=== PATIENT | male | born 1990 | race African-American/Black ===

== ENCOUNTER 2020-07-29 08:44 | Emergency (ER) | payer SELFPAY ==
[2020-07-29 10:01] LABS: Urine Blood NEGATIVE (NEG); Urine Glucose NEGATIVE (NEG); Urine Protein NEGATIVE (NEG)
[2020-07-29 10:07] LABS: Urine Bacteria NONE SEEN /HPF (NONE SEEN); Urine Mucus LIGHT /HPF (NONE SEEN); Urine RBC <5 /HPF (NONE SEEN)
[2020-07-29] MEDS ORDERED: NA CHLORIDE 0.9% 1,000 ML ONE (10:11)
--- NOTE | 2020-07-29 10:24 | ER ---
Nurse's Notes [facility] Name: Jaime Espinoza Age: 30 yrs Sex: Male : 1990 Arrival Date: 07/29/2020 Time: 08:47 Bed 20 Private MD: Diagnosis: Influenza due to other identified influenza virus Presentation: 07/29 09:03 Chief complaint: Patient states: reports chills, N/V, slight cough and upper left sided em back pain, denies fever, diarrhea, or abd pain. Coronavirus screen: Client denies travel out of the [place] in the last 14 days. Ebola Screen: Patient negative for fever greater than or equal to 101.5 degrees Fahrenheit, and additional compatible Ebola Virus Disease symptoms Patient denies exposure to infectious person. Patient denies travel to an Ebola-affected area in the 21 days before illness onset. No symptoms or risks identified at this time. Initial Sepsis Screen: Does the patient meet any 2 criteria? HR > 90 bpm. No. Patient's initial sepsis screen is negative. Does the patient have a suspected source of infection? No. Patient's initial sepsis screen is negative. Risk Assessment: Do you want to hurt yourself or someone else? Patient reports no desire to harm self or others. Onset of symptoms was July 27, 2020. 09:03 Method Of Arrival: Ambulatory em 09:03 Acuity: ABIGAIL 3 em Historical: - Allergies: 09:06 No Known Allergies; em - PMHx: 09:06 None; em - PSHx: 09:06 None; em - Immunization history:: Adult Immunizations up to date. - Social history:: Smoking status: Patient reports the use of cigarette tobacco products, smokes one-half pack cigarettes per day. - Family history:: not pertinent. - Hospitalizations: : No recent hospitalization is reported. Screenin:00 Abuse screen: Denies threats or abuse. Nutritional screening: No deficits noted. em Tuberculosis screening: No symptoms or risk factors identified. Fall Risk None identified. Assessment: 09:00 General: Appears in no apparent distress. comfortable, Behavior is calm, cooperative, em appropriate for age, Denies fever. Pain: Complains of pain in left subscapular area Pain currently is 2 out of 10 on a pain scale. Neuro: Level of Consciousness is awake, alert, obeys commands, Oriented to person, place, time, situation, Appropriate for age. Cardiovascular: Capillary refill < 3 seconds Patient's skin is warm and dry. Respiratory: Reports cough that is non-productive, Airway is patent Respiratory effort is even, unlabored, Respiratory pattern is regular, symmetrical, Denies shortness of breath. GI: Abdomen is flat, Reports nausea, Patient currently denies diarrhea, vomiting. EENT: Nares are clear Oral mucosa is moist. Denies nasal congestion. Derm: Skin is intact, is healthy with good turgor, Skin is pink, warm \T\ dry. Musculoskeletal: Capillary refill < 3 seconds, Range of motion: intact in all extremities. Vital Signs: 09:03 BP 117 / 89; Pulse 91; Resp 18; Temp 98.2(O); Pulse Ox 100% on R/A; Weight 58.97 kg; em Height 5 ft. 7 in. (170.18 cm); Pain 2/10; 09:03 Body Mass Index 20.36 (58.97 kg, 170.18 cm) em ED Course: 08:47 Patient arrived in ED. rg4 08:57 Angel Browne, RN is Primary Nurse. em 08:59 Miguel Shetty MD is Attending Physician. rn 09:00 Patient has correct armband on for positive identification. Pulse ox on. NIBP on. em 09:06 Triage completed. em 09:06 Arm band placed on. em 09:58 Inserted saline lock: 20 gauge in left antecubital area, using aseptic technique. dh3 10:44 IV discontinued, intact, bleeding controlled, No redness/swelling at site. Pressure em dressing applied. 10:45 No provider procedures requiring assistance completed. em Administered Medications: 10:01 Drug: NS 0.9% 1000 ml Route: IV; Rate: 1000 ml; Site: left antecubital; em 10:46 Follow up: IV Status: Completed infusion; IV Intake: 1000ml em Intake: 10:46 IV: 1000ml; Total: 1000ml. em Outcome: 10:24 Discharge ordered by MD. rn 10:50 Discharged to home ambulatory. em 10:50 Condition: improved 10:50 Discharge instructions given to patient, Instructed on discharge instructions, follow up and referral plans. medication usage, Demonstrated understanding of instructions, follow-up care, medications, Prescriptions given X 2. 10:51 Patient left the ED. em Addendum: 07/31/2020 07:54 Addendum: COVID-19 Result: Negative result given to RN to notify pt. Notified pt of d m5 negative COVID 19 swab results. Pt advised that even with a negative test result they should remain in isolation until symptom free for 3 days without medication. Pt also advised to return to the ED for worsening symptoms. Signatures: Yoko Valencia RN RN 5 Angel Browne RN RN em Nieto, Roman, MD MD rn Garcia, Rubi 4 Annalee Muonz 3 Corrections: (The following items were deleted from the chart) 07/29 10:44 09:00 IV discontinued, intact, bleeding controlled, No redness/swelling at site. em Pressure dressing applied, em
--- NOTE | 2020-07-29 10:25 | EDPHYS ---
Physician Documentation [facility] Name: Jaime Espinoza Age: 30 yrs Sex: Male : 1990 Arrival Date: 07/29/2020 Time: 08:47 Bed 20 Private MD: ED Physician Miguel Shetty HPI: 07/29 09:53 This 30 yrs old Black Male presents to ER via Ambulatory with complaints of Vomiting, rn Headache, Back Pain. 09:53 The patient presents to the emergency department with nausea, vomiting. Onset: The rn symptoms/episode began/occurred yesterday. Possible causes: bad food exposure. The symptoms are aggravated by nothing. The symptoms are alleviated by nothing. Severity of symptoms: At their worst the symptoms were mild in the emergency department the symptoms have improved. The patient has not experienced similar symptoms in the past. 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 Reports mild mid back pain, but no chest or abd pain. Has not thrown up today. No diarrhea. No sore throat/runny nose/congestion/neck pain/loss of taste or smell. . Historical: - Allergies: 09:06 No Known Allergies; em - PMHx: 09:06 None; em - PSHx: 09:06 None; em - Immunization history:: Adult Immunizations up to date. - Social history:: Smoking status: Patient reports the use of cigarette tobacco products, smokes one-half pack cigarettes per day. - Family history:: not pertinent. - Hospitalizations: : No recent hospitalization is reported. ROS: 09:53 Constitutional: Negative for fever, chills, and weight loss, Eyes: Negative for injury, rn pain, redness, and discharge, Neck: Negative for injury, pain, and swelling, Cardiovascular: Negative for chest pain, palpitations, and edema, Respiratory: Negative for shortness of breath, cough, wheezing, and pleuritic chest pain, Abdomen/GI: Negative for abdominal pain, diarrhea, and constipation, Back: Negative for injury : Negative for injury, bleeding, discharge, and swelling, MS/Extremity: Negative for injury and deformity, Skin: Negative for injury, rash, and discoloration, Neuro: Negative for numbness, tingling, and seizure. Exam: 09:53 Constitutional: This is a well developed, well nourished patient who is awake, alert, rn and in no acute distress. Ambulatory to room without difficulty or assistance. Head/Face: Normocephalic, atraumatic. Cardiovascular: Regular rate and rhythm. No pulse deficits. Respiratory: Speaking full sentences. No increased work of breathing, no retractions or nasal flaring. Abdomen/GI: soft, non-tender, neg alba Back: No spinal tenderness. No costovertebral tenderness. Full range of motion. Skin: Warm, dry with normal turgor. Normal color with no rashes, no lesions, and no evidence of cellulitis. MS/ Extremity: Pulses equal, no cyanosis. Neurovascular intact. Full, normal range of motion. Equal circumference. Neuro: Awake and alert, GCS 15, oriented to person, place, time, and situation. Cranial nerves II-XII grossly intact. Motor strength 5/5 in all extremities. Sensory grossly intact. Cerebellar exam normal. Normal gait. Vital Signs: 09:03 BP 117 / 89; Pulse 91; Resp 18; Temp 98.2(O); Pulse Ox 100% on R/A; Weight 58.97 kg; em Height 5 ft. 7 in. (170.18 cm); Pain 2/10; 09:03 Body Mass Index 20.36 (58.97 kg, 170.18 cm) em MDM: 08:59 Patient medically screened. rn 10:23 Differential diagnosis: viral gastroenteritis, gastroenteritis, influenza, COVID. Data rn reviewed: vital signs, nurses notes, lab test result(s), and as a result, I will discharge patient. Counseling: I had a detailed discussion with the patient and/or guardian regarding: the historical points, exam findings, and any diagnostic results supporting the discharge/admit diagnosis, lab results, the need for outpatient follow up, to return to the emergency department if symptoms worsen or persist or if there are any questions or concerns that arise at home. Special discussion: I discussed with the patient/guardian in detail that at this point there is no indication for admission to the hospital. It is understood, however, that if the symptoms persist or worsen the patient needs to return immediately for re-evaluation. 07/29 09:13 Order name: COVID-19 rn 07/29 09:13 Order name: Flu; Complete Time: 10:21 rn 07/29 09:14 Order name: Urine Microscopic Only; Complete Time: 10:21 rn 07/29 09:14 Order name: Urine Dipstick-Ancillary (obtain specimen); Complete Time: 09:59 rn 07/29 09:56 Order name: Urine Dipstick--Ancillary (enter results); Complete Time: 10:21 eb 07/29 09:56 Order name: IV Start; Complete Time: 10:01 rn Administered Medications: 10:01 Drug: NS 0.9% 1000 ml Route: IV; Rate: 1000 ml; Site: left antecubital; em 10:46 Follow up: IV Status: Completed infusion; IV Intake: 1000ml em Disposition: 07/29/20 10:24 Discharged to Home. Impression: Influenza due to other identified influenza virus. - Condition is Stable. - Discharge Instructions: Influenza, Adult. - Prescriptions for Zofran ODT 4 mg Oral tablet,disintegrating - place 1 tablet by TRANSLINGUAL route every 8 hours As needed; 15 tablet. Tamiflu 75 mg Oral Capsule - take 1 capsule by ORAL route every 12 hours for 5 days; 10 capsule. - Medication Reconciliation Form, Thank You Letter, Antibiotic Education, Prescription Opioid Use form. - Follow up: Private Physician; When: As needed; Reason: Recheck today's complaints, Re-evaluation by your physician. - Problem is new. - Symptoms have improved. Signatures: Dispatcher [employer] Angel Enamorado RN RN em Nieto, Roman, MD MD varnish thinner: (The following items were deleted from the chart) 10:51 10:24 07/29/2020 10:24 Discharged to Home. Impression: Influenza due to other em identified influenza virus. Condition is Stable. Forms are Medication Reconciliation Form, Thank You Letter, Antibiotic Education, Prescription Opioid Use. Follow up: Private Physician; When: As needed; Reason: Recheck today's complaints, Re-evaluation by your physician. Problem is new. Symptoms have improved. rn
[2020-07-29 10:55] VITALS: BP 117/89; TEMP 98.2; O2SAT 100
== END 2020-07-29 10:51 | disposition home or self-care (01) ==
LOC: ER 08:44
DX: J10.1 Influenza due to other identified influenza virus with other respiratory manifestations (principal); Z20.828 Contact with and (suspected) exposure to other viral communicable diseases; F17.210 Nicotine dependence, cigarettes, uncomplicated
CPT/HCPCS: 81003; 81015; 87804; 96360; 99284; J7030; U0002

== ENCOUNTER 2022-10-06 16:17 | Emergency (ER) | payer SELFPAY ==
--- OUTSIDE RECORDS SUMMARY | 2022-10-06 16:20 | XMS REPORT | Continuity of Care Document ---
:1990 Author Organization [facility] t Address [address] [place] [address] Care Team Providers Name Role Phone No, Pcp [facility] Primary Care Physician Unavailable jenaro Attending Clinician Unavailable NICO RICHARDS Attending Clinician Unavailable Payers Payer Name Policy Type Policy Number Effective Date Expiration Date S ource Self Pay P [id number] 2022 00:00:00 Problems This patient has no known problems. Allergies, Adverse Reactions, Alerts This patient has no known allergies or adverse reactions. Social History Social Habit Start Date Stop Date Quantity Comments Source Tobacco use and 2017-08-24 2017-08-[address] [facility] exposure 00:00:00 00:00:00 [facility] Alcohol intake 2017-08-24 2017-08-[address] [facility] 00:[facility]00 00:00:00 non-drinker of Medical Ce [facility]ter alcohol (finding) Sex Assigned At [address] [facility] 00:00:00 00:00:00 [facility] Smoking Status Start Date Stop Date Source Current every day smoker 2017-08-24 00:00:00 [facility] Medications This patient has no known medications. Procedures This patient has no known procedures. Encounters Start End Encounter Admission Attending Care Care Encounter Source Date/Time Date/Time Type Type Clinicians Facility Department ID 2022-03-03 Outpatient jenaro [facility] [id number] [facility] 17:59:02 [facility] 2021-12-31 Outpatient jenaro [facility] [id number] [facility] 13:57:06 [facility] Results Test Description Test Time Test Comments Results Result Comments Source CBC W/PLT COUNT & AUTO DIFFERENTIAL 2017-08-24 18:56:00 Test Item Value Reference Range Interpretation Comme nts WHITE BLOOD CELL COUNT (BEAKER) (test code = 775) 5.4 10e3/ L 4.0- 10.0 RED BLOOD CELL COUNT (BEAKER) (test code = 761) 4.88 10e6/ L 4.20-5 .80 HEMOGLOBIN (BEAKER) (test code = 410) 15.9 g/dL 13.0-16.8 HEMATOCRIT (BEAKER) (test code = 411) 46.7 % 40.0-50.0 MEAN CORPUSCULAR VOLUME (BEAKER) (test code = 753) 95.8 fL 82. 0-98.0 MEAN CORPUSCULAR HEMOGLOBIN (BEAKER) (test code = 751) 32.7 pg 27.0-33.0 MEAN CORPUSCULAR HEMOGLOBIN CONC (BEAKER) (test code = 34.1 g/dL 32.0-36.0 752) RED CELL DISTRIBUTION WIDTH (BEAKER) (test code = 412) 12.7 % 10.3-14.2 PLATELET COUNT (BEAKER) (test code = 756) 220 10e3/ L 150-430 MEAN PLATELET VOLUME (BEAKER) (test code = 754) 6.8 fL 6.5-10 .5 NEUTROPHILS RELATIVE PERCENT (BEAKER) (test code = 429) 54 % LYMPHOCYTES RELATIVE PERCENT (BEAKER) (test code = 430) 38 % MONOCYTES RELATIVE PERCENT (BEAKER) (test code = 431) 4 % EOSINOPHILS RELATIVE PERCENT (BEAKER) (test code = 432) 4 % BASOPHILS RELATIVE PERCENT (BEAKER) (test code = 437) 1 % NEUTROPHILS ABSOLUTE COUNT (BEAKER) (test code = 670) 2.91 10e3/ L 1.80-8.00 LYMPHOCYTES ABSOLUTE COUNT (BEAKER) (test code = 414) 2.07 10e3/ L 1.48-4.50 MONOCYTES ABSOLUTE COUNT (BEAKER) (test code = 415) 0.23 10e3/ L 0. 00-1.30 EOSINOPHILS ABSOLUTE COUNT (BEAKER) (test code = 416) 0.19 10e3/ L 0.00-0.50 BASOPHILS ABSOLUTE COUNT (BEAKER) (test code = 417) 0.03 10e3/ L 0. 00-0.20 BASIC METABOLIC [id number] 18:52:00 Test Item Value Reference Range Interpretation Comments SODIUM (BEAKER) 145 meq/L 135-148 (test code = 381) POTASSIUM (BEAKER) 4.1 meq/L 3.6-5.5 (test code = 379) CHLORIDE (BEAKER) 104 meq/L 98-106 (test code = 382) CO2 (BEAKER) (test 26 meq/L 24-32 code = 355) BLOOD UREA NITROGEN 15 mg/dL 10-26 (BEAKER) (test code = 354) CREATININE (BEAKER) 1.20 mg/dL 0.50-1.20 (test code = 358) GLUCOSE RANDOM 93 mg/dL 70-110 (BEAKER) (test code = 652) CALCIUM (BEAKER) 9.3 mg/dL 8.5-10.5 (test code = 697) EGFR (BEAKER) (test 89 mL/min/1.73 ESTIMA TEJA GFR IS code = 1092) sq m NOT ACCURATE CREATININE CLEARANCE IN PREDICTING GLOMERULAR FILTRATION RATE . ESTIMATED GFR I S NOT APPLICABLE FOR DIALYSIS PATIEN TS. HEPATIC FUNCTION [id number] 18:52:00 Test Item Value Reference Range Interpretation Comments TOTAL PROTEIN (BEAKER) (test code = 7.2 gm/dL 6.0-8.5 770) ALBUMIN (BEAKER) (test code = 1145) 3.9 g/dL 3.5-5.0 BILIRUBIN TOTAL (BEAKER) (test code 0.7 mg/dL 0.1-1.2 = 377) BILIRUBIN DIRECT (BEAKER) (test 0.5 mg/dL 0.0-0.4 H code = 706) ALKALINE PHOSPHATASE (BEAKER) (test 93 U/L 30-115 code = 346) AST (SGOT) (BEAKER) (test code = 18 U/L 5-40 353) ALT (SGPT) (BEAKER) (test code = 45 U/L 5-50 347) [id number] 18:52:00 Test Item Value Reference Range Interpretation Comments LIPASE (ROMAN) (test code = 749) 183 U/L 40-240 RAD, CHEST, 2 [id number] 18:30:00Reason for exam:->coughShould this be performed at the bedside?->NoFINAL REPORT Chest, PA and lateral. History: Cough. Comparison: None available.Discussion: The cardiomediastinal silhouette and pulmonary vasculature are within normal limits. Thelungs are clear without evidence of consolidation or effusion. There are no acute osseous abnormalities. The soft tissues are unremarkable. IMPRESSION: No radiographic evidence of acute cardiopulmonaryabnormality. Signed: Lalit Young Verified Date/Time: 08/24/2017 18:30:17 Reading Location: [address] Consult Reading Room
[2022-10-06 17:06] VITALS: BP 120/87; TEMP 98.9; O2SAT 98
--- NOTE | 2022-10-23 14:16 | EDPHYS ---
Physician Documentation [facility] Name: Jaime Espinoza Age: 32 yrs Sex: Male : 1990 Arrival Date: 10/06/2022 Time: 16:20 Bed IW10 Private MD: ED Physician Bola Clancy HPI: 10/06 16:22 This 32 yrs old Black Male presents to ER via Ambulatory with complaints of Lips jmm Swelling, Cough, Chills. 16:22 Onset: The symptoms/episode began/occurred gradually. This is a 32-year-old male that jmm presents emerged part with complaints of upper lip swelling. Denies any injury. Complains of chills and cough as well. Denies vomiting. Denies diarrhea.. Historical: - Allergies: 16:29 No Known Allergies; ld1 - Home Meds: 16:29 None [Active]; ld1 - PMHx: 16:29 None; ld1 - PSHx: 16:29 None; ld1 - Immunization history:: Adult Immunizations up to date, Client reports receiving the 2nd dose of the Covid vaccine. - Social history:: Smoking status: Patient denies any tobacco usage or history of. Patient/guardian denies using alcohol. ROS: 16:22 Constitutional: Negative for fever, chills, and weight loss, Cardiovascular: Negative jmm for chest pain, palpitations, and edema, Respiratory: Negative for shortness of breath, cough, wheezing, and pleuritic chest pain. 16:22 Skin: Positive for swelling. 16:22 All other systems are negative. Exam: 16:22 Constitutional: This is a well developed, well nourished patient who is awake, alert, jmm and in no acute distress. 16:22 ENT: Moist Mucus Membranes Neck: Trachea midline, Supple Chest/axilla: Normal chest wall appearance and motion. Cardiovascular: Regular rate and rhythm. No edema appreciated Respiratory: Normal respirations, no respiratory distress appreciated Abdomen/GI: Non distended Back: Normal ROM 16:22 Head/face: Herpetic lesion noted to the upper lip. 16:22 Skin: Herpetic lesion noted to the upper lip. 16:22 Neuro: Orientation: is normal, Mentation: is normal, Memory: is normal. 16:22 Psych: Behavior/mood is pleasant, cooperative. Vital Signs: 16:28 BP 120 / 87; Pulse 96; Resp 18; Temp 98.9(O); Pulse Ox 98% on R/A; Weight 68.04 kg; ld1 Height 5 ft. 7 in. ; Pain 0/10; 16:28 Body Mass Index 23.49 (68.04 kg, 170.18 cm) ld1 16:28 Pain Scale: Adult ld1 MDM: 16:22 Patient medically screened. [facility] Administered Medications: No medications were administered Disposition: 16:29 Co-signature as Attending Physician, Bola Clancy DO I was immediately available on-site ms3 in the Emergency Department for consultation in the care of the patient. 19:00 Co-signature as Attending Physician, Bola Clancy DO. ms3 Disposition Summary: 10/06/22 16:26 Discharge Ordered Location: Home [facility] Condition: Stable [facility] Diagnosis - Other herpesviral infection [facility] Followup: m - With: Private Physician - When: 2 - 3 days - Reason: Recheck today's complaints, Continuance of care, Re-evaluation by your physician Discharge Instructions: - Discharge Summary Sheet [facility] - Cold Sore [facility] Forms: - Medication Reconciliation Form [facility] - Thank You Letter [facility] - Antibiotic Education [facility] - Prescription Opioid Use [facility] Prescriptions: - Valtrex 1 gram Oral tablet - take 1 tablet by ORAL route 3 times per day for 10 days; 30 tablet; Refills: 0, [facility] Product Selection Permitted Signatures: Alexis James PA PA jmm Sims, Marcus, DO DO ms3 Shreya Andrew, RN RN ld1
--- NOTE | 2022-10-23 14:16 | ER ---
Nurse's Notes [facility] Name: Jaime Espinoza Age: 32 yrs Sex: Male : 1990 Arrival Date: 10/06/2022 Time: 16:20 Bed IW10 Private MD: Diagnosis: Other herpesviral infection Presentation: 10/06 16:28 Chief complaint: Patient states: Sore on lip - started swelling after 3 days. ld1 Coronavirus screen: At this time, the client does not indicate any symptoms associated with coronavirus-19. Ebola Screen: No symptoms or risks identified at this time. Initial Sepsis Screen: Does the patient meet any 2 criteria? No. Patient's initial sepsis screen is negative. Does the patient have a suspected source of infection? No. Patient's initial sepsis screen is negative. Risk Assessment: Do you want to hurt yourself or someone else? Patient reports no desire to harm self or others. Onset of symptoms was October 06, 2022. 16:28 Method Of Arrival: Ambulatory ld1 16:28 Acuity: ABIGAIL 4 ld1 Triage Assessment: 16:29 General: Appears in no apparent distress. comfortable, Behavior is calm, cooperative, ld1 appropriate for age. Pain: Denies pain. EENT: No signs and/or symptoms were reported regarding the EENT system. Neuro: Level of Consciousness is awake, alert, obeys commands, Oriented to person, place, time, situation. Cardiovascular: Capillary refill < 3 seconds Patient's skin is warm and dry. Respiratory: Airway is patent Respiratory effort is even, unlabored. GI: Abdomen is flat, non-distended. : No signs and/or symptoms were reported regarding the genitourinary system. Derm: No signs and/or symptoms reported regarding the dermatologic system. Musculoskeletal: No signs and/or symptoms reported regarding the musculoskeletal system. Historical: - Allergies: 16:29 No Known Allergies; ld1 - Home Meds: 16: None [Active]; ld1 - PMHx: 16:29 None; ld1 - PSHx: 16:29 None; ld1 - Immunization history:: Adult Immunizations up to date, Client reports receiving the 2nd dose of the Covid vaccine. - Social history:: Smoking status: Patient denies any tobacco usage or history of. Patient/guardian denies using alcohol. Vital Signs: 16:28 BP 120 / 87; Pulse 96; Resp 18; Temp 98.9(O); Pulse Ox 98% on R/A; Weight 68.04 kg; ld1 Height 5 ft. 7 in. ; Pain 0/10; 16:28 Body Mass Index 23.49 (68.04 kg, 170.18 cm) ld1 16:28 Pain Scale: Adult ld1 ED Course: 16:20 Patient arrived in ED. mr 16:21 Alexis James PA is PHCP. [facility] 16:21 Bola Clancy DO is Attending Physician. [facility] 16:29 Triage completed. ld1 16:29 Arm band placed on right wrist. ld1 16:39 Lakeisha Wiley, RN is Primary Nurse. iw Administered Medications: No medications were administered Outcome: 16:26 Discharge ordered by . [facility] 16:39 Patient left the ED. iw Signatures: Alexis James PA PA [facility] ShepardCheryle mr Lakeisha Wiley, RN RN iw Shreya Andrew RN RN ld1
== END 2022-10-06 16:39 | disposition home or self-care (01) ==
LOC: ER 16:17
DX: B00.89 Other herpesviral infection (principal)
CPT/HCPCS: 99281

== ENCOUNTER 2022-10-07 05:38 | Emergency (ER) | payer SELFPAY ==
--- OUTSIDE RECORDS SUMMARY | 2022-10-07 05:40 | XMS REPORT | Continuity of Care Document ---
:1990 Author Organization [facility] t Address [address] [place] [address] Care Team Providers Name Role Phone No, Pcp [facility] Primary Care Physician Unavailable jenaro Attending Clinician Unavailable NICO RICHARDS Attending Clinician Unavailable Payers Payer Name Policy Type Policy Number Effective Date Expiration Date S ource Self Pay P [id number] 2022 00:00:00 Problems This patient has no known problems. Allergies, Adverse Reactions, Alerts This patient has no known allergies or adverse reactions. Social History Social Habit Start Date Stop Date Quantity Comments Source Tobacco use and 2017-08-24 2017-08-[address] [facility] exposure 00:00:00 00:00:00 [facility] Alcohol intake 2017-08-24 2017-08-[address] [facility] 00:[facility]:00 00:00:00 non-drinker of Medical Ce nter alcohol (finding) Sex Assigned At [address] [facility] 00:00:00 00:00:00 [facility] Smoking Status Start Date Stop Date Source Current every day smoker 2017-08-24 00:00:00 [facility] Medications This patient has no known medications. Procedures This patient has no known procedures. Encounters Start End Encounter Admission Attending Care Care Encounter Source Date/Time Date/Time Type Type Clinicians Facility Department ID 2022-03-03 Outpatient jenaro [facility] [id number] [facility] 17:59:02 [facility] 2021-12-31 Outpatient jenaro [facility] [id number] [facility] 13:57:06 [facility] Results Test Description Test Time Test Comments [...] 0.03 10e3/ L 0. 00-0.20 BASIC METABOLIC [id number] 18:52:00 Test Item Value Reference Range Interpretation [...] APPLICABLE FOR DIALYSIS PATIEN TS. HEPATIC FUNCTION [id number] 18:52:00 Test Item Value Reference Range Interpretation [...] (test code = 45 U/L 5-50 347) [id number] 18:52:00 Test Item Value Reference Range Interpretation Comments LIPASE (ROMAN) (test code = 749) 183 U/L 40-240 RAD, CHEST, 2 [id number] 18:30:00Reason for exam:->coughShould this be performed at [...] Young Verified Date/Time: 08/24/2017 18:30:17 Reading Location: [address] Consult Reading Room
[2022-10-07] MEDS ORDERED: AMPICILLIN/SULBACTAM 3GM/VIAL ONE (06:31)
[2022-10-07] MEDS ORDERED: NA CHLORIDE 0.9% 100 ML ONE (06:31)
[2022-10-07 07:25] VITALS: BP 116/89; TEMP 99.2; O2SAT 99
--- NOTE | 2022-10-23 15:21 | EDPHYS ---
Physician Documentation [facility] Name: Jaime Espinoza Age: 32 yrs Sex: Male : 1990 Arrival Date: 10/07/2022 Time: 05:39 Bed 16 Private MD: ED Physician Ramsey Pereyra HPI: 10/07 06:09 This 32 yrs old Black Male presents to ER via Unassigned with complaints of Lips sp3 Swelling. 06:09 32-year-old male with history of recent herpetic facial lesion diagnosis 1 day ago and sp3 now presents with worsening upper lip swelling and mild pain. Patient denies fever but states he has had chills. Review of systems is negative for any other symptoms including headache, neck pain, sore throat, nose pain, sinus pain, chest pain, shortness of breath, lesions anywhere else on the body, dysuria, STI symptoms, or any other aspects at this time. She was placed on Valtrex p.o. yesterday for which she has been taking. Patient is on no other medications including MEHUL inhibitors and communicates no history of angioedema or prior similar symptoms in the past.. Historical: - Allergies: 06:22 No Known Allergies; ha1 - Home Meds: 06:22 None [Active]; ha1 - Immunization history:: Adult Immunizations up to date. - Social history:: Smoking status: Patient reports the use of cigarette tobacco products, denies chronic smoking, but will smoke occasionally. ROS: 06:11 Constitutional: Negative for fever, chills, and weight loss, Eyes: Negative for injury, sp3 pain, redness, and discharge, Neck: Negative for injury, pain, and swelling, Cardiovascular: Negative for chest pain, palpitations, and edema, Respiratory: Negative for shortness of breath, cough, wheezing, and pleuritic chest pain, Abdomen/GI: Negative for abdominal pain, nausea, vomiting, diarrhea, and constipation, Back: Negative for injury and pain, MS/Extremity: Negative for injury and deformity, Skin: Negative for injury, rash, and discoloration, Neuro: Negative for headache, weakness, numbness, tingling, and seizure, Psych: Negative for depression, anxiety, suicide ideation, homicidal ideation, and hallucinations, Endocrine: Negative for neck swelling, polydipsia, polyuria, polyphagia, and marked weight changes, Hematologic/Lymphatic: Negative for swollen nodes, abnormal bleeding, and unusual bruising. 06:11 All other systems are negative. Exam: 06:11 Constitutional: This is a well developed, well nourished patient who is awake, alert, sp3 and in no acute distress. Eyes: Pupils equal round and reactive to light, extra-ocular motions intact. Lids and lashes normal. Conjunctiva and sclera are non-icteric and not injected. Cornea within normal limits. Periorbital areas with no swelling, redness, or edema. ENT: Nares patent. No nasal discharge, no septal abnormalities noted. External auditory canals are clear. Oropharynx with no redness, swelling, or masses, exudates, or evidence of obstruction, uvula midline. Mucous membranes moist. Neck: Trachea midline, no thyromegaly or masses palpated, and no cervical lymphadenopathy. Supple, full range of motion without nuchal rigidity, or vertebral point tenderness. No Meningismus. Chest/axilla: Normal chest wall appearance and motion. Nontender with no deformity. No lesions are appreciated. Cardiovascular: Regular rate and rhythm with a normal S1 and S2. No gallops, murmurs, or rubs. Normal PMI, no JVD. No pulse deficits. Respiratory: Lungs have equal breath sounds bilaterally, clear to auscultation and percussion. No rales, rhonchi or wheezes noted. No increased work of breathing, no retractions or nasal flaring. Abdomen/GI: Soft, non-tender, with normal bowel sounds. No distension or tympany. No guarding or rebound. No evidence of tenderness throughout. Back: No spinal tenderness. No costovertebral tenderness. Full range of motion. 06:11 Head/face: Upper lip notably swollen without extension into the lower lip or peripheral areas of the upper lip. Surface lesion is noted consistent with viral infection. Mass is mildly fluctuant and mildly painful. No drainage is noted. Intraoral cavity is normal.. Vital Signs: 06:22 BP 116 / 89; Pulse 92; Resp 18; Temp 99.2; Pulse Ox 99% on R/A; ha1 MDM: 06:09 Patient medically screened. sp3 06:12 Data reviewed: vital signs, nurses notes. ED course: 32-year-old male with recently sp3 diagnosed herpetic lesion now with upper lip swelling. Differential diagnosis includes local abscess versus idiopathic angioedema bradykinin induced. Will give Unasyn 1 dose IV and discharge patient home on p.o. Augmentin. I discussed possible I\T\D options with patient but we both agree that conservative management is best at this time. I have a low clinical suspicion for angioedema but it is still a possibility. Patient has no other symptoms including airway compromise, sepsis, shock or any other critical findings. Patient to follow-up with PCP or return here for any other further emergency.. Administered Medications: 06:23 Drug: Ampicillin-Sulbactam Sodium IVPB 3 grams Route: IVPB; Infused Over: 30 mins; ha1 Site: left antecubital; 07:00 Follow up: Response: No adverse reaction; IV Status: Completed infusion; IV Intake: ha1 100ml Disposition Summary: 10/07/22 06:14 Discharge Ordered Location: Home sp3 Condition: Stable sp3 Diagnosis - Facial abscess sp3 Followup: sp3 - With: Private Physician - When: Upon discharge from the Emergency Department - Reason: Wound Recheck, Further diagnostic work-up Discharge Instructions: - Discharge Summary Sheet sp3 - Skin Abscess sp3 Forms: - Medication Reconciliation Form sp3 - Thank You Letter sp3 - Antibiotic Education sp3 - Prescription Opioid Use sp3 Prescriptions: - Augmentin 875-125 mg Oral Tablet - take 1 tablet by ORAL route every 12 hours for 10 days; 20 tablet; Refills: 0, sp3 Product Selection Permitted Signatures: Ramsey Pereyra MD MD sp3 Sary Jung RN RN ha1
--- NOTE | 2022-10-23 15:21 | ER ---
Nurse's Notes [facility] Name: Jaime Espinoza Age: 32 yrs Sex: Male : 1990 Arrival Date: 10/07/2022 Time: 05:39 Bed 16 Private MD: Diagnosis: Facial abscess Presentation: 10/07 05:40 Chief complaint: Patient states: I have this swollen lip that it is not getting better. ha1 Coronavirus screen: Vaccine status: Patient reports receiving the 2nd dose of the covid vaccine. Ebola Screen: No symptoms or risks identified at this time. Initial Sepsis Screen: Does the patient meet any 2 criteria? No. Patient's initial sepsis screen is negative. Does the patient have a suspected source of infection? No. Patient's initial sepsis screen is negative. Risk Assessment: Do you want to hurt yourself or someone else? Patient reports no desire to harm self or others. Onset of symptoms was October 07, 2022. 05:40 Acuity: ABIGAIL 4 ha1 05:40 Method Of Arrival: Ambulatory ha1 Historical: - Allergies: 06:22 No Known Allergies; ha1 - Home Meds: 06:22 None [Active]; ha1 - Immunization history:: Adult Immunizations up to date. - Social history:: Smoking status: Patient reports the use of cigarette tobacco products, denies chronic smoking, but will smoke occasionally. Screenin:40 [facility] ED Fall Risk Assessment (Adult) History of falling in the last 3 months, ha1 including since admission No falls in past 3 months (0 pts) Confusion or Disorientation No (0 pts) Intoxicated or Sedated No (0 pts) Impaired Gait No (0 pts) Mobility Assist Device Used No (0 pt) Altered Elimination No (0 pt) Score/Fall Risk Level 0 - 2 = Low Risk Oriented to surroundings, Maintained a safe environment, Educated pt \T\ family on fall prevention, incl call for assistance when getting out of bed. 06:22 Abuse screen: Denies threats or abuse. Denies injuries from another. Nutritional ha1 screening: No deficits noted. Tuberculosis screening: No symptoms or risk factors identified. Assessment: 05:41 General: Appears comfortable, Behavior is calm, cooperative. Pain: Complains of pain in ha1 upper lip Pain does not radiate. Pain at worst was 10 out of 10 on a pain scale. Neuro: Level of Consciousness is awake, alert, obeys commands, Oriented to person, place, time, situation. Cardiovascular: Capillary refill Patient's skin is warm and dry. Respiratory: Airway is patent Respiratory effort is even, unlabored, Respiratory pattern is regular, symmetrical. EENT: swollen upper lip . Musculoskeletal: Range of motion: intact in all extremities. 06:37 Reassessment: Patient and/or family updated on plan of care and expected duration. Pain ha1 level reassessed. Patient is alert, oriented x 3, equal unlabored respirations, skin warm/dry/pink. awaiting for medication administration to be finish. Vital Signs: 06:22 BP 116 / 89; Pulse 92; Resp 18; Temp 99.2; Pulse Ox 99% on R/A; ha1 ED Course: 05:39 Patient arrived in ED. [email or web address] 05:40 Arm band placed on right wrist. ha1 05:40 Patient has correct armband on for positive identification. Bed in low position. Call ha1 light in reach. Side rails up X 1. 05:52 Ramsey Pereyra MD is Attending Physician. sp3 05:53 Sary Jung RN is Primary Nurse. ha1 06:37 Triage completed. ha1 07:00 No provider procedures requiring assistance completed. IV discontinued, intact, ha1 bleeding controlled, No redness/swelling at site. Pressure dressing applied. Administered Medications: 06:23 Drug: Ampicillin-Sulbactam Sodium IVPB 3 grams Route: IVPB; Infused Over: 30 mins; ha1 Site: left antecubital; 07:00 Follow up: Response: No adverse reaction; IV Status: Completed infusion; IV Intake: ha1 100ml Medication: 06:22 VIS not applicable for this client. ha1 Intake: 07:00 IV: 100ml; Total: 100ml. ha1 Outcome: 06:14 Discharge ordered by . sp3 07:00 Discharged to home ambulatory. ha1 07:00 Condition: stable 07:00 Discharge instructions given to patient, Instructed on discharge instructions, follow up and referral plans. medication usage, Demonstrated understanding of instructions, follow-up care, medications, Prescriptions given X 1. 07:04 Patient left the ED. ha1 Signatures: Ramsey Pereyra MD MD sp3 Sugey Gonzales j6 Jung, Sary, RN RN ha1
== END 2022-10-07 07:04 | disposition home or self-care (01) ==
LOC: ER 05:38
DX: L02.01 Cutaneous abscess of face (principal)
CPT/HCPCS: 96365; 99283; J0295

== ENCOUNTER 2022-10-08 03:33 | Emergency (ER) | payer SELFPAY ==
--- OUTSIDE RECORDS SUMMARY | 2022-10-08 03:37 | XMS REPORT | Continuity of Care Document ---
:1990 Author Organization [facility] t Address [address] [place] [address] Care Team Providers Name Role Phone No, Pcp [facility] Primary Care Physician Unavailable jenaro Attending Clinician Unavailable NICO RICHARDS Attending Clinician Unavailable Payers Payer Name Policy Type Policy Number Effective Date Expiration Date S ource Self Pay P [id number] 2022 00:00:00 Problems This patient has no known problems. Allergies, Adverse Reactions, Alerts This patient has no known allergies or adverse reactions. Social History Social Habit Start Date Stop Date Quantity Comments Source Tobacco use and 2017-08-24 2017-08-[address] [facility] exposure 00:00:00 00:00:00 [facility] Alcohol intake 2017-08-24 2017-08-[address] [facility] 00:00:00 00:00:00 non-drinker of Medical Ce nter alcohol (finding) Sex Assigned At [address] [facility] 00:00:00 00:00:00 [facility] Smoking Status Start Date Stop Date Source Current every day smoker 2017-08-24 00:00:00 [facility] Medications This patient has no known medications. Procedures This patient has no known procedures. Encounters Start End Encounter Admission Attending Care Care Encounter Source Date/Time Date/Time Type Type Clinicians Facility Department ID 2022-03-03 Outpatient jenaro [facility] [id number] [facility] 17:59:02 [facility] 2021-12-31 Outpatient jenaro [facility] [id number] [facility] 13:57:06 [facility] Results Test Description Test Time Test Comments [...] 0.03 10e3/ L 0. 00-0.20 BASIC METABOLIC [id number] 18:52:00 Test Item Value Reference Range Interpretation [...] APPLICABLE FOR DIALYSIS PATIEN TS. HEPATIC FUNCTION [id number] 18:52:00 Test Item Value Reference Range Interpretation [...] (test code = 45 U/L 5-50 347) [id number] 18:52:00 Test Item Value Reference Range Interpretation Comments LIPASE (ROMAN) (test code = 749) 183 U/L 40-240 RAD, CHEST, 2 [id number] 18:30:00Reason for exam:->coughShould this be performed at [...] Young Verified Date/Time: 08/24/2017 18:30:17 Reading Location: [address] Consult Reading Room
[2022-10-08] MEDS ORDERED: DOXYCYCLINE 100 MG CAP PO ONE (04:20)
[2022-10-08 05:15] VITALS: TEMP 97.5; O2SAT 100
[2022-10-08 05:16] VITALS: BP 139/86
--- NOTE | 2022-10-23 15:30 | ER ---
Nurse's Notes [facility] Name: Jaime Espinoza Age: 32 yrs Sex: Male : 1990 Arrival Date: 10/08/2022 Time: 03:37 Bed 5 Private MD: Diagnosis: Edema, unspecified;Herpesviral infection, unspecified Presentation: 10/08 03:55 Chief complaint: Patient states: "My top lip is really swollen. I got a small cut on it as6 a week ago and it just keeps swelling". Coronavirus screen: At this time, the client does not indicate any symptoms associated with coronavirus-19. Ebola Screen: No symptoms or risks identified at this time. Initial Sepsis Screen: Does the patient meet any 2 criteria? No. Patient's initial sepsis screen is negative. Does the patient have a suspected source of infection? No. Patient's initial sepsis screen is negative. Risk Assessment: Do you want to hurt yourself or someone else? Patient reports no desire to harm self or others. Onset of symptoms was October 01, 2022. 03:55 Acuity: ABIGAIL 4 as6 03:55 Method Of Arrival: Ambulatory as6 Historical: - Allergies: 03:55 No Known Allergies; as6 - Home Meds: 03:55 None [Active]; as6 - PMHx: 03:55 None; as6 - PSHx: 03:55 None; as6 - Immunization history:: Client reports having NOT received the Covid vaccine. - Social history:: Smoking status: Patient reports the use of cigarette tobacco products, denies chronic smoking, but will smoke occasionally. Screenin:58 [facility] ED Fall Risk Assessment (Adult) Score/Fall Risk Level 0 - 2 = Low Risk. Abuse as6 screen: Denies threats or abuse. Denies injuries from another. Nutritional screening: No deficits noted. Tuberculosis screening: No symptoms or risk factors identified. Assessment: 03:58 General: Appears in no apparent distress. Behavior is calm, cooperative. Pain: Denies as6 pain. EENT: EENT: swollen upper lip. Vital Signs: 03:55 BP 125 / 78; Pulse 74; Resp 18 S; Temp 97.5(TE); Pulse Ox 100% on R/A; Weight 65.77 kg as6 (R); Height 5 ft. 7 in. (R); Pain 0/10; 04:55 BP 139 / 86; Pulse 78; Resp 18 S; Pulse Ox 100% on R/A; as6 03:55 Body Mass Index 22.71 (65.77 kg, 170.18 cm) as6 03:55 Pain Scale: Adult as6 ED Course: 03:37 Patient arrived in ED. ag3 03:47 Papa Arenas, BO is Primary Nurse. as6 03:48 Andrea Norton MD is Attending Physician. bs3 03:52 Arm band placed on. as6 03:58 Triage completed. as6 03:58 Bed in low position. Call light in reach. as6 04:55 No provider procedures requiring assistance completed. Patient did not have IV access as6 during this emergency room visit. Administered Medications: 04:17 Drug: Doxycycline PO 100 mg Route: PO; as6 04:55 Follow up: Response: No adverse reaction as6 Medication: 03:58 VIS not applicable for this client. as6 Outcome: 04:33 Discharge ordered by . bs3 04:55 Discharged to home ambulatory. as6 04:55 Condition: stable 04:55 Discharge instructions given to patient, Instructed on discharge instructions, follow up and referral plans. medication usage, Demonstrated understanding of instructions, follow-up care, medications, Prescriptions given X 1. 04:56 Patient left the ED. as6 Signatures: Sylvie Knight ag3 Papa Arenas, BO RN as6 Andrea Norton MD MD bs3
--- NOTE | 2022-10-23 15:30 | EDPHYS ---
Physician Documentation [facility] Name: Jaime Espinoza Age: 32 yrs Sex: Male : 1990 Arrival Date: 10/08/2022 Time: 03:37 Bed 5 Private MD: ED Physician Andrea Norton HPI: 10/08 03:56 This 32 yrs old Black Male presents to ER via Unassigned with complaints of Lips bs3 Swelling. 03:56 The problem is located in the mouth. Onset: The symptoms/episode began/occurred 1 bs3 week(s) ago. Duration: The symptoms are continuous. Associated signs and symptoms: The patient has no apparent associated signs or symptoms. The patient has been recently seen by a physician: yesterday. 32-year-old male presents with lip pain and swelling for approximately 1 week. He notes prsenting here two days ago and then yesterday, he was prescribed augmentin but isn't taking it because he cannot afford it. He denies feve or chills, he does not think the lip is worse, but thinks there may be a site at the bottom lip that started. Denies any other symptoms. . Historical: - Allergies: 03:55 No Known Allergies; as6 - Home Meds: 03:55 None [Active]; as6 - PMHx: 03:55 None; as6 - PSHx: 03:55 None; as6 - Immunization history:: Client reports having NOT received the Covid vaccine. - Social history:: Smoking status: Patient reports the use of cigarette tobacco products, denies chronic smoking, but will smoke occasionally. ROS: 03:56 Constitutional: Negative for fever, chills bs3 03:56 All other systems are negative. Exam: 03:56 Constitutional: This is a well developed, well nourished patient who is awake, alert, bs3 and in no acute distress. Head/Face: his upper lip is edemetous but soft, with a central crusted lesion, the lower lip has a small similar lesion which appears to be starting. His inner mucosal are normal Eyes: Pupils equal round and reactive to light, extra-ocular motions intact. Lids and lashes normal. ENT: mmm, no posterior phyarngeal erythema Neck: Trachea midline, no thyromegaly, no neck stiffness Chest/axilla: Normal chest wall appearance and motion. Nontender with no deformity. No lesions are appreciated. Cardiovascular: Regular rate and rhythm with a normal S1 and S2. symmetric pulses in upper extremities Respiratory: Lungs have equal breath sounds bilaterally, clear to auscultation, no respiratory distress Abdomen/GI: Soft, non-tender, no rebound or guarding Vital Signs: 03:55 BP 125 / 78; Pulse 74; Resp 18 S; Temp 97.5(TE); Pulse Ox 100% on R/A; Weight 65.77 kg as6 (R); Height 5 ft. 7 in. (R); Pain 0/10; 04:55 BP 139 / 86; Pulse 78; Resp 18 S; Pulse Ox 100% on R/A; as6 03:55 Body Mass Index 22.71 (65.77 kg, 170.18 cm) as6 03:55 Pain Scale: Adult as6 MDM: 03:41 Patient medically screened. bs3 03:56 Differential diagnosis: dental abscess, aphthous ulcers, gingivostomatitis. Data bs3 reviewed: vital signs, nurses notes. Care significantly affected by the following Social Determinants of Health: Poor access to healthcare and/or lack of insurance. ED course: possible viral vs bacterial hx/pe not consistent with angioedema at this point. My suspician is for a viral infection given the long time course. I recommended a needle aspiration but pt refused, pt noted augmentin too expensive, will switch to doxy, advised to fill at [facility], return prec given. Administered Medications: 04:17 Drug: Doxycycline PO 100 mg Route: PO; as6 04:55 Follow up: Response: No adverse reaction as6 Disposition Summary: 10/08/22 04:33 Discharge Ordered Location: Home bs3 Problem: new bs3 Symptoms: have worsened bs3 Condition: Stable bs3 Diagnosis - Edema, unspecified bs3 - Herpesviral infection, unspecified bs3 Followup: bs3 - With: Emergency Department - When: 2 - 3 days - Reason: Re-evaluation by your physician Discharge Instructions: - Discharge Summary Sheet bs3 - Cold Sore, [id number] bs3 Forms: - Medication Reconciliation Form bs3 - Thank You Letter bs3 - Antibiotic Education bs3 - Prescription Opioid Use bs3 Prescriptions: - Doxycycline Hyclate 100 mg Oral Tablet - take 1 tablet by ORAL route once daily; 10 tablet; Refills: 0, Product bs3 Selection Permitted Signatures: Papa Arenas RN RN as6 Andrea Norton MD MD bs3
== END 2022-10-08 04:56 | disposition home or self-care (01) ==
LOC: ER 03:33
DX: B00.9 Herpesviral infection, unspecified (principal); R60.9 Edema, unspecified; F17.210 Nicotine dependence, cigarettes, uncomplicated
CPT/HCPCS: 99283